=== PATIENT | female | born 1985 | race Caucasian/White ===

== ENCOUNTER 2020-10-04 14:09 | Emergency (ER) | payer OTHER ==
[~2020-10-04] VITALS: Ht 160 cm; Wt 54.6 kg
[2020-10-04 16:00] LABS: BASOPHILS % (AUTO) 0 % (0-1); EOSINOPHILS % (AUTO) 0 % (1-7); LYMPHOCYTES % (AUTO) 15 % (22-44); MD NO; MEAN CORPUSCULAR HEMOGLOBIN 32.1 pg (27.0-34.8); MEAN CORPUSCULAR HGB CONC 35.2 g/dL (32.4-35.8); MEAN PLATELET VOLUME 6.5 fL (7.4-10.4); MONOCYTES % (AUTO) 9 % (2-9); NEUTROPHILS % (AUTO) 76 % (42-75); PLATELET COUNT 453 x10^3/uL (130-400); RED BLOOD COUNT 4.43 x10^6/uL (3.82-5.3); RED CELL DISTRIBUTION WIDTH 13.2 % (9.6-15.2)
[2020-10-04 16:05] LABS: ANION GAP 7 mmol/L (5-15); CALCIUM 8.9 mg/dL (8.5-10.1); CHLORIDE 105 mmol/L (98-107)
[2020-10-04 16:25] LABS: ALANINE AMINOTRANSFERASE 25 U/L (12-78); ALKALINE PHOSPHATASE 67 U/L (45-117); BILIRUBIN,TOTAL 0.4 mg/dL (0.2-1.0); CREATININE 0.58 mg/dL (0.55-1.02); TOTAL PROTEIN 8.1 g/dL (6.4-8.2)
--- NOTE | 2020-10-04 17:10 | NUR ---
PT AMBULATORY TO ROOM 34 FROM [facility] FOR C/O VB AND CRAMPING X 2 DAYS BV WORSENED TODAY. PT STATES SHE HAD US 09/27/2020 AND WAS FOUND TO BE . PT STATES LMP 07/23/2020. A0. PT RESTING ON GURNEY. NADN. MONITORS APPLIED. VSS. WARM BLANKET PROVIDED. ERP DR. LYMAN AT BEDSIDE FOR EVAL.
--- NOTE | 2020-10-04 17:19 | NUR ---
SPOKE W/ ERP DR. LYMAN IN REGARDS TO [facility]. PER ERP [facility] LAB ORDERED.
--- NOTE | 2020-10-04 17:51 | NUR ---
PER ERP DR. LYMAN NO NEED FOR UA.
[2020-10-04 18:03] VITALS: BP 107/67
== END 2020-10-04 18:06 | disposition home or self-care (01) ==
LOC: ED 15:14
DX: O02.0 Blighted ovum and nonhydatidiform mole (principal); O08.9 Unspecified complication following an ectopic and molar pregnancy; Z3A.09 9 weeks gestation of pregnancy
CPT/HCPCS: 36415; 76801; 80053; 84702; 85025; 86901; 99284